=== PATIENT | male | born 1965 | race Caucasian/White ===

== ENCOUNTER 2016-12-23 21:07 | Emergency (ER) | payer BC | END 2016-12-24 00:58 | disposition home or self-care (01) | LOC: ER 21:07 | DX: I48.0 Paroxysmal atrial fibrillation (principal); D45 Polycythemia vera; R42 Dizziness and giddiness; R06.02 Shortness of breath; E11.65 Type 2 diabetes mellitus with hyperglycemia; Z79.82 Long term (current) use of aspirin; Z79.899 Other long term (current) drug therapy; Z88.2 Allergy status to sulfonamides | CPT/HCPCS: 36415; 92960; 96361; 96374; 96375 ==